=== PATIENT | female | born 1975 | race Caucasian/White ===

== ENCOUNTER 2023-04-17 18:19 | Observation (INO) | payer MEDICAID, OTHER ==
[2023-04-17] MEDS ORDERED: SODIUM CHLORIDE 0.9% 1,000 ML IV STA (18:28)
[2023-04-17] MEDS ORDERED: LORazepam 2 MG/ML INJ IV STA ×3 (18:28→19:18)
--- NOTE | 2023-04-17 18:29 | ED ---
Altered Mental Status HPI - General Stated Complaint: Tremors Time Seen by Provider: 04/17/23 18:22 Source: RN notes reviewed, old records reviewed Mode of arrival: EMS Limitations: altered mental status - History of Present Illness Initial Comments: This is a 48-year-old female who presents today for evaluation of medication withdrawal. Patient recently as a few days off of taking Seroquel. The patient states symptoms are progressively worse throughout the day. She is out of Seroquel home. Patient is unable to take medications secondary to not having primary care provider in town. Patient is having uncontrolled shaking and unresponsiveness MD Complaint: altered mental status, confusion, decreased responsiveness, other (Uncontrolled tremors) -: hour(s) Severity: severe Consistency of Symptoms: getting worse, constant Context: other (Patient recently did stop taking Seroquel) Associated Symptoms: denies other symptoms Treatments Prior to Arrival: IV fluid, oxygen - Related Data Allergies Allergy/AdvReac Type Severity Reaction Status Date / Time diphenhydramine Allergy Hallucinati Verified 04/17/23 18:45 [From Benadryl] ons metoclopramide [From Reglan] Allergy Hallucinati Verified 04/17/23 18:45 ons Review of Systems ROS Statement: Those systems with pertinent positive or pertinent negative responses have been documented in the HPI. ROS Other: All systems not noted in ROS Statement are negative. General Exam General appearance: alert, in no apparent distress Head exam: Present: atraumatic, normocephalic, normal inspection Eye exam: Present: normal appearance, PERRL, EOMI. Absent: scleral icterus, conjunctival injection, periorbital swelling ENT exam: Present: normal exam, mucous membranes moist Neck exam: Present: normal inspection. Absent: tenderness, meningismus, lymphadenopathy Respiratory exam: Present: normal lung sounds bilaterally. Absent: respiratory distress, wheezes, rales, rhonchi, stridor Cardiovascular Exam: Present: regular rate, normal rhythm, normal heart sounds. Absent: systolic murmur, diastolic murmur, rubs, gallop, clicks GI/Abdominal exam: Present: soft, normal bowel sounds. Absent: distended, t enderness, guarding, rebound, rigid Extremities exam: Present: normal inspection, full ROM, normal capillary refill. Absent: tenderness, pedal edema, joint swelling, calf tenderness Back exam: Present: normal inspection Neurological exam: Present: alert, oriented X3, CN II-XII intact Psychiatric exam: Present: normal affect, normal mood Skin exam: Present: warm, dry, intact, normal color. Absent: rash Course Vital Signs 04/17/23 04/17/23 04/17/23 18:28 18:37 18:53 Temperature 98 F Pulse Rate 83 91 84 Respiratory 20 20 16 Rate Blood Pressure 120/71 107/48 120/71 O2 Sat by Pulse 94 L 96 94 L Oximetry 04/17/23 20:08 Temperature Pulse Rate 72 Respiratory 20 Rate Blood Pressure 129/82 O2 Sat by Pulse 99 Oximetry - Reevaluation(s) Reevaluation #1: 04/17/23 20:06 Medical records reviewed Reevaluation #2: 04/17/23 20:06 Patient symptoms are improved Reevaluation #3: 04/17/23 20:06 Patient informed results and questions answered Reevaluation #4: 04/17/23 18:29 Was pt. sent in by a medical professional or institution? @ -no Did you speak to anyone other than the patient for history? @ -no Did you review nursing and triage notes? @ -agree Were old charts reviewed? @ -yes Differential Diagnosis? @ -prior EKG interpreted by me (3pts min.)? @ -yes X-rays interpreted by me (1pt min.)? @ -yes CT interpreted by me (1pt min.)? @ -no U/S interpreted by me (1pt. min.)? @ -no What testing was considered but not performed? (CT, X-rays, U/S, labs)? Why? @ -no What meds were considered but not given? Why? @ -no Did you discuss the management of the patient with other professionals? @ -no Did you reconcile home meds? @ -no Was smoking cessation discussed for >3mins.? @ -no Was critical care preformed (if so, how long)? @ -no Were there social determinants of health that impacted care today? How? (Homelessness, low income, unemployed, alcoholism, drug addiction, transportation, low edu. Level, literacy, decrease access to med. care, half-way, rehab)? @ -no Was there de-escalation of care discussed even if they declined? (Discuss DNR or withdrawal of care, Hospice)? @ -no What co-morbidities impacted this encounter? (DM, HTN, Smoking, COPD, CAD, Cancer, CVA, Hep., AIDS, mental health diagnosis, sleep apnea, morbid obesity)? @ -none Was patient admitted / discharged? @ - Undiagnosed new problem with uncertain prognosis? @ -no Drug Therapy requiring intensive monitoring for toxicity (Heparin, Nitro, Insulin, Cardizem)? @ -no Were any procedures done? @ -no Diagnosis/symptom? @ - Acute, or Chronic, or Acute on Chronic? @ -acute Uncomplicated (without systemic symptoms) or Complicated (systemic symptoms)? @ -complicated Side effects of treatment? @ -no Exacerbation, Progression, or Severe Exacerbation] @ -no Poses a threat to life or bodily function? @ -yes Reevaluation #5: 04/17/23 18:29 Differential Altered Mental Status: Hypoglycemia, DKA, hypercapnia, ETOH, overdose, CO poisoning, trauma, myxedema coma, HTN encephalopathy, infection, encephalitis, psychosis, intercranial hemorrhage, hepatic encephalopathy, meningitis, CVA, this is not meant to be an all-inclusive list - Consultations Consultation #1: spoke herminio BURGESS who is ok for hospital admission Medical Decision Making - Medical Decision Making 48 female to the emergency department. Patient resents today with what appears to be severe seroquel withdrawal issue, patient is off all medications with intractable tremor. Patient will be admitted for medication management and symptom control - Lab Data Result diagrams: 04/17/23 18:28 04/17/23 18:28 Lab Results 04/17/23 04/17/23 04/17/23 Range/Units 18:28 18:28 18:28 WBC 7.8 (3.8-10.6) k/uL RBC 4.88 (3.80-5.40) m/uL Hgb 14.6 (11.4-16.0) gm/dL Hct 43.4 (34.0-46.0) % MCV 88.9 (80.0-100.0) fL MCH 30.0 (25.0-35.0) pg MCHC 33.8 (31.0-37.0) g/dL RDW 13.3 (11.5-15.5) % Plt Count 249 (150-450) k/uL MPV 7.7 Neutrophils % 68 % Lymphocytes % 23 % Monocytes % 5 % Eosinophils % 3 % Basophils % 0 % Neutrophils # 5.3 (1.3-7.7) k/uL Lymphocytes # 1.8 (1.0-4.8) k/uL Monocytes # 0.4 (0-1.0) k/uL Eosinophils # 0.2 (0-0.7) k/uL Basophils # 0.0 (0-0.2) k/uL PT 10.1 (9.0-12.0) sec INR 1.0 (<1.2) APTT 24.0 (22.0-30.0) sec Sodium 142 (137-145) mmol/L Potassium 4.6 (3.5-5.1) mmol/L Chloride 110 H (98-107) mmol/L Carbon Dioxide 21 L (22-30) mmol/L Anion Gap 11 mmol/L BUN 12 (7-17) mg/dL Creatinine 0.93 (0.52-1.04) mg/dL Est GFR (CKD-EPI)AfAm 84 (>60 ml/min/1.73 sqM) Est GFR (CKD-EPI)NonAf 72 (>60 ml/min/1.73 sqM) Glucose 104 H (74-99) mg/dL Calcium 9.1 (8.4-10.2) mg/dL Phosphorus 3.9 (2.5-4.5) mg/dL Magnesium 1.9 (1.6-2.3) mg/dL Total Bilirubin 0.4 (0.2-1.3) mg/dL AST 22 (14-36) U/L ALT 19 (4-34) U/L Alkaline Phosphatase 65 (38-126) U/L Creatine Kinase 107 (30-135) U/L Troponin I (0.000-0.034) ng/mL Total Protein 7.4 (6.3-8.2) g/dL Albumin 4.2 (3.5-5.0) g/dL 04/17/23 Range/Units 18:28 WBC (3.8-10.6) k/uL RBC (3.80-5.40) m/uL Hgb (11.4-16.0) gm/dL Hct (34.0-46.0) % MCV (80.0-100.0) fL MCH (25.0-35.0) pg MCHC (31.0-37.0) g/dL RDW (11.5-15.5) % Plt Count (150-450) k/uL MPV Neutrophils % % Lymphocytes % % Monocytes % % Eosinophils % % Basophils % % Neutrophils # (1.3-7.7) k/uL Lymphocytes # (1.0-4.8) k/uL Monocytes # (0-1.0) k/uL Eosinophils # (0-0.7) k/uL Basophils # (0-0.2) k/uL PT (9.0-12.0) sec INR (<1.2) APTT (22.0-30.0) sec Sodium (137-145) mmol/L Potassium (3.5-5.1) mmol/L Chloride (98-107) mmol/L Carbon Dioxide (22-30) mmol/L Anion Gap mmol/L BUN (7-17) mg/dL Creatinine (0.52-1.04) mg/dL Est GFR (CKD-EPI)AfAm (>60 ml/min/1.73 sqM) Est GFR (CKD-EPI)NonAf (>60 ml/min/1.73 sqM) Glucose (74-99) mg/dL Calcium (8.4-10.2) mg/dL Phosphorus (2.5-4.5) mg/dL Magnesium (1.6-2.3) mg/dL Total Bilirubin (0.2-1.3) mg/dL AST (14-36) U/L ALT (4-34) U/L Alkaline Phosphatase (38-126) U/L Creatine Kinase (30-135) U/L Troponin I <0.012 (0.000-0.034) ng/mL Total Protein (6.3-8.2) g/dL Albumin (3.5-5.0) g/dL - EKG Data -: EKG Interpreted by Me (EKG is sinus 78 TN 159 QRS 79 QTC 389) Disposition Clinical Impression: Tremor, Altered mental status Narrative: Seroquel Withdrawal Disposition: ADMITTED IP TO THIS [facility] Condition: Fair Is patient prescribed a controlled substance at d/c from ED?: No Referrals: None,Stated [Primary Care Provider] - 1-2 days Time of Disposition: 20:40
[2023-04-17 19:15] LABS: Prothrombin Time 10.1 sec (9.0-12.0)
[2023-04-17 19:18] LABS: ALT 19 U/L (4-34); AST 22 U/L (14-36); African American GFR (CKD) 84 (>60 ml/min/1.73 sqM); Albumin 4.2 g/dL (3.5-5.0); Alkaline Phosphatase 65 U/L (38-126); Anion Gap 11 mmol/L; Blood Urea Nitrogen 12 mg/dL (7-17); Calcium 9.1 mg/dL (8.4-10.2); Carbon Dioxide 21 mmol/L (22-30); Chloride 110 mmol/L (98-107); Creatine Kinase 107 U/L (30-135); Glucose 104 mg/dL (74-99); Magnesium 1.9 mg/dL (1.6-2.3); Non-African American GFR(CKD) 72 (>60 ml/min/1.73 sqM); Phosphorus 3.9 mg/dL (2.5-4.5); Potassium 4.6 mmol/L (3.5-5.1); Sodium 142 mmol/L (137-145); Total Bilirubin 0.4 mg/dL (0.2-1.3); Total Protein 7.4 g/dL (6.3-8.2)
[2023-04-17] MEDS ORDERED: QUEtiapine 200 MG TAB PO STA (19:18)
[2023-04-17 19:21] LABS: Basophils % (A) 0 %; Eosinophils # (A) 0.2 k/uL (0-0.7); Eosinophils % (A) 3 %; HCT 43.4 % (34.0-46.0); HGB 14.6 gm/dL (11.4-16.0); Lymphocytes # (A) 1.8 k/uL (1.0-4.8); Lymphocytes % (A) 23 %; MCHC 33.8 g/dL (31.0-37.0); MCV 88.9 fL (80.0-100.0); Mean Platelet Volume 7.7; Monocytes # (A) 0.4 k/uL (0-1.0); Monocytes % (A) 5 %; Neutrophils # (A) 5.3 k/uL (1.3-7.7); Neutrophils % (A) 68 %; Platelet Count 249 k/uL (150-450); RBC 4.88 m/uL (3.80-5.40); RDW 13.3 % (11.5-15.5); WBC 7.8 k/uL (3.8-10.6)
[2023-04-17] MEDS: SODIUM CHLORIDE 0.9% 1,000 ML IV STA ×2 (19:34→21:11)
[2023-04-17] MEDS ORDERED: NALOXONE 0.4 MG/ML 1 ML VIAL IV PRN (20:34)
[2023-04-17] MEDS ORDERED: KETOROLAC 15 MG/ML 1 ML VIAL IVP PRN (20:34)
[2023-04-17] MEDS ORDERED: ACETAMINOPHEN TAB 325 MG TAB PO PRN (20:34)
[2023-04-17] MEDS ORDERED: QUEtiapine 25 MG TAB PO SCH (21:00)
[2023-04-17] MEDS ORDERED: QUEtiapine 100 MG TAB PO SCH (21:00)
[2023-04-17] MEDS: SODIUM CHLORIDE 0.9% 1,000 ML IV SCH (21:11)
[2023-04-17] MEDS: LORazepam 2 MG/ML INJ IV PRN (21:20)
[2023-04-17] MEDS: HYDROmorphone 1 MG/ML 1 ML SYRINGE IVP PRN (21:41)
[2023-04-17] MEDS: PRAMIPEXOLE 0.5 MG TAB PO SCH (23:29)
[2023-04-18 00:03] LABS: Appearance,Urine Cloudy (Clear); Bacteria,Urine Many /hpf; Bilirubin,Urine Negative (Negative); Blood,Urine Negative (Negative); Color,Urine Light Yellow; Glucose,Urine (UA) Negative (Negative); Hyaline Casts,Urine 3 /lpf (0-2); Ketones,Urine Negative (Negative); Leukocyte Esterase,Urine Moderate (Negative); Mucus,Urine Rare /hpf; Nitrite,Urine Positive (Negative); Protein,Urine Negative (Negative); RBC,Urine 1 /hpf (0-5); Squamous Epithelial Cell,Urine <1 /hpf (0-4); Urobilinogen,Urine <2.0 mg/dL (<2.0); WBC,Urine 20 /hpf (0-5)
[2023-04-18] MEDS: LORazepam 2 MG/ML INJ IV PRN ×3 (00:05→16:28)
[2023-04-18] MEDS: HYDROmorphone 1 MG/ML 1 ML SYRINGE IVP PRN ×2 (00:15→07:50)
[2023-04-18] MEDS: ATORVASTATIN 10 MG TAB PO SCH (08:08)
[2023-04-18] MEDS: PROPRANOLOL LA 60 MG CAP.SA.24H PO SCH (08:08)
[2023-04-18] MEDS: DULoxetine HCL 30 MG CAPSULE.DR PO SCH (08:08)
--- NOTE | 2023-04-18 11:27 | US ---
EXAMINATION TYPE: US kidneys/renal and bladder DATE OF EXAM: 04/18/2023 COMPARISON: NONE CLINICAL INDICATION: Female, 48 years old with history of Christian; CHRISTIAN EXAM MEASUREMENTS: Right Kidney: 10.6 x 5.0 x 4.5 cm Left Kidney: 10.3 x 5.4 x 5.0 cm Right Kidney: No hydronephrosis or masses seen. Slightly limited visibility of lower pole due to gas. Left Kidney: No hydronephrosis or masses seen Bladder: Not fully distended Bilateral Jets seen: No IMPRESSION: No significant abnormality seen.
[2023-04-18] MEDS: SODIUM CHLORIDE 0.9% 1,000 ML IV SCH (11:31)
[2023-04-18] MEDS ORDERED: busPIRone HCl 5 MG TAB PO PRN (14:08)
--- NOTE | 2023-04-18 14:16 | P.HPIM ---
History of Present Illness H&P Date: 04/18/23 History of present illness; patient is a 48-year-old lady with history of hyperl ipidemia, depression who presented to the ER because of uncontrollable shaking and tremors. Patient has been not taking her Seroquel for the last few days as she has been out of Seroquel and does not have any PCP in town. Denied any fever or chills. Denies any auditory or visual hallucinations. Denies any nausea or vomiting. Patient continues to complain of tremors. Denies any suicidal thoughts. Because of this uncontrollable shaking, patient came to the ER Initial lab work done in the ER showed WBC 7.8, hemoglobin 14.6, platelet count 249, sodium 140, potassium 4.6, BUN 12, creatinine 0.93, UA positive for nitrites, leukocyte Estrace positive, urine WBC 20, She was admitted to medicine service REVIEW OF SYSTEMS: CONSTITUTIONAL: No fever, shaking and tremulous HEENT: No recent visual problems or hearing problems. Denied any sore throat. CARDIOVASCULAR: No chest pain, orthopnea, PND, no palpitations, no syncope. PULMONARY: No shortness of breath, no cough, no hemoptysis. GASTROINTESTINAL: No diarrhea, no nausea, no vomiting, no abdominal pain. NEUROLOGICAL: No headaches, no weakness, no numbness. HEMATOLOGICAL: Denies any bleeding or petechiae. GENITOURINARY: Denies any burning micturition, frequency, or urgency. MUSCULOSKELETAL/RHEUMATOLOGICAL: Denies any joint pain, swelling, or any muscle pain. ENDOCRINE: Denies any polyuria or polydipsia. The rest of the 14-point review of systems is negative. PHYSICAL EXAMINATION: GENERAL: The patient is alert and oriented x3, not in any acute distress. Very tremulous HEENT: Pupils are round and equally reacting to light. EOMI. No scleral icterus. No conjunctival pallor. Normocephalic, atraumatic. No pharyngeal erythema. No thyromegaly. CARDIOVASCULAR: S1 and S2 present. No murmurs, rubs, or gallops. PULMONARY: Chest is clear to auscultation, no wheezing or crackles. ABDOMEN: Soft, nontender, nondistended, normoactive bowel sounds. No palpable organomegaly. MUSCULOSKELETAL: No joint swelling or deformity. EXTREMITIES: No cyanosis, clubbing, or pedal edema. NEUROLOGICAL: Gross neurological examination did not reveal any focal deficits. SKIN: No rashes. Assessment and plan Seroquel withdrawal UTI Hyperlipidemia Monitor vital signs Monitor CBC Monitor CMP Continue IV Rocephin Ordered ultrasound of kidneys Consults psychiatry resume home meds Labs and medication were reviewed.. Continue same treatment. Continue with symptomatic treatment. Resume home medication. Monitor labs and vitals. DVT and GI prophylaxis. Further recommendations as per clinical course of the patient Past Medical History Past Medical History: Fibromyalgia Additional Past Medical History / Comment(s): svt Past Surgical History: Orthopedic Surgery Past Psychological History: Anxiety, Depression Smoking Status: Current every day smoker Past Alcohol Use History: None Reported Past Drug Use History: None Reported Medications and Allergies Home Medications Medication Instructions Recorded Confirmed Type Atorvastatin [Lipitor] 10 mg PO DAILY 04/17/23 04/17/23 History DULoxetine HCL [Cymbalta] 90 mg PO DAILY 04/17/23 04/17/23 History Pramipexole Di-HCl [Mirapex] 2.25 mg PO HS 04/17/23 04/17/23 History Propranolol LA [Inderal LA] 120 mg PO DAILY 04/17/23 04/17/23 History QUEtiapine FUMARATE [SEROquel] 100 mg PO HS 04/18/23 04/18/23 History Allergies Allergy/AdvReac Type Severity Reaction Status Date / Time diphenhydramine Allergy Hallucinati Verified 04/17/23 18:45 [From Benadryl] ons metoclopramide [From Reglan] Allergy Hallucinati Verified 04/17/23 18:45 ons Physical Exam Vitals: Vital Signs Temp Pulse Pulse Resp BP BP Pulse Ox 04/18/23 07:02 97.9 F 72 18 104/72 99 04/17/23 22:17 98.2 F 94 17 118/67 96 04/17/23 20:08 72 20 129/82 99 04/17/23 18:53 84 16 120/71 94 L 04/17/23 18:37 98 F 91 20 107/48 96 04/17/23 18:28 83 20 120/71 94 L Intake and Output 04/17/23 04/18/23 04/18/23 22:59 06:59 14:59 Other: Voiding Method Bedpan Weight 77.111 kg Results CBC & Chem 7: 04/17/23 18:28 04/17/23 18:28 Labs: Abnormal Lab Results - Last 24 Hours (Table) 04/17/23 04/17/23 Range/Units 18:28 23:50 Chloride 110 H (98-107) mmol/L Carbon Dioxide 21 L (22-30) mmol/L Glucose 104 H (74-99) mg/dL Urine Appearance Cloudy H (Clear) Urine Nitrite Positive H (Negative) Ur Leukocyte Esterase Moderate H (Negative) Urine WBC 20 H (0-5) /hpf Urine Bacteria Many H (None) /hpf Hyaline Casts 3 H (0-2) /lpf Urine Mucus Rare H (None) /hpf
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
[2023-04-18] MEDS: PRAMIPEXOLE 0.5 MG TAB PO SCH (19:49)
[2023-04-18 19:56] VITALS: RESP 17
[2023-04-18] MEDS ORDERED: QUEtiapine 50 MG TAB PO SCH (21:00)
[2023-04-19] MEDS: SODIUM CHLORIDE 0.9% 1,000 ML IV SCH (00:44)
[2023-04-19] MEDS: LORazepam 2 MG/ML INJ IV PRN (04:58)
[2023-04-19 07:20] VITALS: BP 115/78; PULSE 65; TEMP 98
[2023-04-19] MEDS: ATORVASTATIN 10 MG TAB PO SCH (08:51)
[2023-04-19] MEDS: DULoxetine HCL 30 MG CAPSULE.DR PO SCH (08:51)
[2023-04-19] MEDS: PROPRANOLOL LA 60 MG CAP.SA.24H PO SCH (08:53)
--- NOTE | 2023-04-19 13:16 | P.DS ---
Providers Date of admission: 04/17/23 20:38 Expected date of discharge: 04/19/23 Attending physician: Altaf Bruner Consults: 04/17/23 20:57 Consult Physician Routine Consulting Provider: Ed Looney Consult Reason/Comments: medReaction Do you want consulting provider notified?: Yes Primary care physician: Stated None Hospital Course: Discharge diagnoses; UTI Hyperlipidemia Depressive disorder NOS hx of PTSD SSRI medication withdrawal Hospital course; patient is a 48-year-old lady with history of hyperlipidemia, depression who presented to the ER because of uncontrollable shaking and tremors. Patient has been not taking her Seroquel for the last few days as she has been out of Seroquel and does not have any PCP in town. Denied any fever or chills. Denies any auditory or visual hallucinations. Denies any nausea or vomiting. Patient continues to complain of tremors. Denies any suicidal thoughts. Because of this uncontrollable shaking, patient came to the ER Initial lab work done in the ER showed WBC 7.8, hemoglobin 14.6, platelet count 249, sodium 140, potassium 4.6, BUN 12, creatinine 0.93, UA positive for nitrites, leukocyte Estrace positive, urine WBC 20, She was admitted to medicine service 04/19 Psych evaluated the patient, recommended resumed cymbalta home dose of 90 mg daily for mood/anxiety, increased seroquel 150 mg qhs for mood stabiliation/anxiety/sleep, buspar 15 mg tid prn for anxiety. Being discharged on 1 more day of Ceftin to complete a 3 day course for UTI PHYSICAL EXAMINATION: GENERAL: The patient is alert and oriented x3, not in any acute distress. Well developed, well nourished. HEENT: Pupils are round and equally reacting to light. EOMI. No scleral icterus. No conjunctival pallor. Normocephalic, atraumatic. No pharyngeal erythema. No thyromegaly. CARDIOVASCULAR: S1 and S2 present. No murmurs, rubs, or gallops. PULMONARY: Chest is clear to auscultation, no wheezing or crackles. ABDOMEN: Soft, nontender, nondistended, normoactive bowel sounds. No palpable organomegaly. MUSCULOSKELETAL: No joint swelling or deformity. EXTREMITIES: No cyanosis, clubbing, or pedal edema. NEUROLOGICAL: Gross neurological examination did not reveal any focal deficits. SKIN: No rashes. Dictation was produced using [employer] dictation software. please excuse any grammatical, word or spelling errors. Patient Condition at Discharge: Fair Plan - Discharge Summary Discharge Rx Participant: No New Discharge Prescriptions: New busPIRone HCl [Buspar] 15 mg PO TID PRN #30 tab PRN Reason: Anxiety cefUROXime axetiL [Ceftin] 500 mg PO BID 1 Days #2 tab NS DULoxetine HCL [Cymbalta] 90 mg PO DAILY #60 cap QUEtiapine [SEROquel] 150 mg PO HS #30 tab Continue Atorvastatin [Lipitor] 10 mg PO DAILY Propranolol LA [Inderal LA] 120 mg PO DAILY Pramipexole Di-HCl [Mirapex] 2.25 mg PO HS #30 tab Discontinued DULoxetine HCL [Cymbalta] 90 mg PO DAILY QUEtiapine FUMARATE [SEROquel] 100 mg PO HS Discharge Medication List Atorvastatin [Lipitor] 10 mg PO DAILY 04/17/23 [History] Propranolol LA [Inderal LA] 120 mg PO DAILY 04/17/23 [History] DULoxetine HCL [Cymbalta] 90 mg PO DAILY #60 cap 04/19/23 [Rx] Pramipexole Di-HCl [Mirapex] 2.25 mg PO HS #30 tab 04/19/23 [Rx] QUEtiapine [SEROquel] 150 mg PO HS #30 tab 04/19/23 [Rx] busPIRone HCl [Buspar] 15 mg PO TID PRN #30 tab 04/19/23 [Rx] cefUROXime axetiL [Ceftin] 500 mg PO BID 1 Days #2 tab NS 04/19/23 [Rx] Follow up Appointment(s)/Referral(s): None,Stated [Primary Care Provider] - 1-2 days Discharge/Stand Alone Forms: Area PCPs Discharge Disposition: HOME SELF-CARE
== END 2023-04-19 15:16 | disposition home or self-care (01) ==
LOC: EC 18:19 → 4SSUR 20:38
PROVIDERS: ADMIT Hospitalist; ATTEND Hospitalist
DX: N39.0 Urinary tract infection, site not specified (principal); E78.5 Hyperlipidemia, unspecified; F32.A Depression, unspecified; F15.23 Other stimulant dependence with withdrawal; F43.10 Post-traumatic stress disorder, unspecified; M79.7 Fibromyalgia; F41.9 Anxiety disorder, unspecified; F17.200 Nicotine dependence, unspecified, uncomplicated; Z79.899 Other long term (current) drug therapy; Z88.8 Allergy status to other drugs, medicaments and biological substances
CPT/HCPCS: 96361 ×3; 96365; 96375 ×2; 96376 ×3; 99285; 36415; 94760; 93005; 80053; 82550; 83735; 84100; 84484; 85025; 85610; 85730; 81001; 76770; G0378 ×3; J2060 ×3; J0696 ×2; J1170 ×2; J1885

== ENCOUNTER 2023-05-19 01:30 | Inpatient (IN) | payer MEDICAID, OTHER ==
[2023-05-19] MEDS ORDERED: SODIUM CHLORIDE 0.9% 500 ML 500 ML IV ONE (02:05)
[2023-05-19] MEDS ORDERED: LORazepam 2 MG/ML INJ IV STA ×2 (02:05→19:40)
--- NOTE | 2023-05-19 02:10 | ED ---
General Adult HPI - General Chief complaint: Anxiety Stated complaint: Medication Reaction Time Seen by Provider: 05/19/23 01:53 Source: patient, RN notes reviewed, old records reviewed Limitations: no limitations - History of Present Illness Initial comments: 48 -year-old female presents to the emergency room with complaints of uncontrollable tremors. States she was able to drive herself to the hospital. States that this occurred approximately 3-4 weeks ago and was admitted to the hospital from Tuesday to Tuesday. At that time was having uncontrolled shaking and unresponsiveness. They suspected withdrawal from Seroquel and was admitted to the hospital. She was admitted she states from Tuesday to Tuesday and discharged home but does not remember anything about her hospital stay. She states she has been taking her Seroquel and her symptom started again on Tuesday and seem to be getting worse. She states she does not have a primary care doctor. -: days(s) (3) Location: left, right (Generalized uncontrollable body tremors), lower extremity Severity scale (1-10): 0 Consistency: constant Improves with: none Worsens with: none Treatments Prior to Arrival: other (seroquel) - Related Data Home Medications Medication Instructions Recorded Confirmed Atorvastatin [Lipitor] 10 mg PO DAILY 04/17/23 04/17/23 Propranolol LA [Inderal LA] 120 mg PO DAILY 04/17/23 04/17/23 Previous Rx's Medication Instructions Recorded DULoxetine HCL [Cymbalta] 90 mg PO DAILY #60 cap 04/19/23 Pramipexole Di-HCl [Mirapex] 2.25 mg PO HS #30 tab 04/19/23 QUEtiapine [SEROquel] 150 mg PO HS #30 tab 04/19/23 busPIRone HCl [Buspar] 15 mg PO TID PRN #30 tab 04/19/23 cefUROXime axetiL [Ceftin] 500 mg PO BID 1 Days #2 tab NS 04/19/23 Allergies Allergy/AdvReac Type Severity Reaction Status Date / Time diphenhydramine Allergy Hallucinati Verified 04/17/23 18:45 [From Benadryl] ons metoclopramide [From Reglan] Allergy Hallucinati Verified 04/17/23 18:45 ons Review of Systems ROS Statement: Those systems with pertinent positive or pertinent negative responses have been documented in the HPI. ROS Other: All systems not noted in ROS Statement are negative. Past Medical History Past Medical History: Fibromyalgia Additional Past Medical History / Comment(s): svt History of Any Multi-Drug Resistant Organisms: None Reported Past Surgical History: Orthopedic Surgery Past Anesthesia/Blood Transfusion Reactions: No Reported Reaction Past Psychological History: Anxiety, Depression Smoking Status: Current every day smoker Past Alcohol Use History: None Reported Past Drug Use History: None Reported General Exam Limitations: no limitations General appearance: alert, other (whole body tremors) Head exam: Present: atraumatic, normocephalic Eye exam: Present: other (pinpoint pupils bilaterally). Absent: scleral icterus, conjunctival injection ENT exam: Present: mucous membranes moist Neck exam: Absent: tenderness, meningismus Respiratory exam: Present: normal lung sounds bilaterally. Absent: respiratory distress, accessory muscle use Cardiovascular Exam: Present: regular rate Extremities exam: Present: full ROM, normal capillary refill, other (Persistent tremors bilateral lower extremities). Absent: pedal edema Back exam: Absent: tenderness, paraspinal tenderness, vertebral tenderness, rash noted Neurological exam: Present: alert, oriented X3, other (tremors) Psychiatric exam: Present: anxious Skin exam: Present: warm, dry, normal color. Absent: cyanosis, diaphoretic, petechiae, pallor Course Vital Signs 05/19/23 05/19/23 01:31 03:34 Temperature 98.1 F Pulse Rate 69 92 Respiratory 18 19 Rate Blood Pressure 134/81 O2 Sat by Pulse 98 Oximetry Medical Decision Making - Medical Decision Making Was pt. sent in by a medical professional or institution (, PA, AIR ANALYSIS ENGINEERING TECHNICIAN, urgent c are, hospital, or assisted...) When possible be specific @ -No Did you speak to anyone other than the patient for history (EMS, parent, family, police, friend...)? What history was obtained from this source @ -No Did you review nursing and triage notes (agree or disagree)? Why? @ -I reviewed and agree with nursing and triage notes Were old charts reviewed (outside hosp., previous admission, EMS record, old EKG, old radiological studies, urgent care reports/EKG's, assisted records)? Report findings @ -Previous ER visit and admission notes and discharge summary Differential Diagnosis (chest pain, altered mental status, abdominal pain women, abdominal pain men, vaginal bleeding, weakness, fever, dyspnea, syncope, headache, dizziness, GI bleed, back pain, seizure, CVA, palpatations, mental health, musculoskeletal)? @ -Neuroleptic malignant syndrome, serotonin syndrome, anxiety, drug reaction, this is not all inclusive list EKG interpreted by me (3pts min.). @ -n/a X-rays interpreted by me (1pt min.). @ -None done CT interpreted by me (1pt min.). @ -None done U/S interpreted by me (1pt. min.). @ -None done What testing was considered but not performed or refused? (CT, X-rays, U/S, labs)? Why? @ -None What meds were considered but not given or refused? Why? @ -None Did you discuss the management of the patient with other professionals (professionals i.e. , PA, AIR ANALYSIS ENGINEERING TECHNICIAN, lab, RT, psych nurse, hospice social worker, editor school photograph, teacher, chief operations officer, pillowcase sewer)? Give summary @ -No Was smoking cessation discussed for >3mins.? @ -No Was critical care preformed (if so, how long)? @ -No Were there social determinants of health that impacted care today? How? (Homelessness, low income, unemployed, alcoholism, drug addiction, transportation, low edu. Level, literacy, decrease access to med. care, [facility], rehab)? @ -No Was there de-escalation of care discussed even if they declined (Discuss DNR or withdrawal of care, Hospice)? DNR status @ -No What co-morbidities impacted this encounter? (DM, HTN, Smoking, COPD, CAD, Cancer, CVA, ARF, Chemo, Hep., AIDS, mental health diagnosis, sleep apnea, morbid obesity)? @ -Fibromyalgia, anxiety, depression Was patient admitted / discharged? Hospital course, mention meds given and route, prescriptions, significant lab abnormalities, going to OR and other pertinent info. @ -Admitted 48 -year-old female presents to the emergency room with complaints of uncontrollable tremors. States she was able to drive herself to the hospital. States that this occurred approximately 3-4 weeks ago and was admitted to the hospital from Tuesday to Tuesday. At that time was having uncontrolled shaking and unresponsiveness. They suspected withdrawal from Seroquel and was admitted to the hospital. She was admitted she states from Tuesday to Tuesday and discharged home but does not remember anything about her hospital stay. She states she has been taking her Seroquel and her symptom started again on Tuesday and seem to be getting worse. She states she does not have a primary care doctor. Previous records were reviewed. Discharge summary just discharge diagnosis of UTI, hyperlipidemia, depression, PTSD, SSRI medication withdrawal. She was discharged on BuSpar for anxiety, Cymbalta daily and Seroquel at bedtime. Psychiatric consultation with Dr. Griffiths performed patient did not meet criteria for inpatient psychiatric hospitalization. Was given outpatient psychiatric follow-up.Patient afebrile, vital signs are stable. She is alert and oriented 4 Patient was given a milligram of Ativan along with IV fluids. Labs are pending. Case discussed with Dr. Hernandez patient will be admitted with neurology consult for uncontrollable tremors. Undiagnosed new problem with uncertain prognosis? @ -No Drug Therapy requiring intensive monitoring for toxicity (Heparin, Nitro, Insulin, Cardizem)? @ -No Were any procedures done? @ -No Diagnosis/symptom? @ -Uncontrollable tremors Acute, or Chronic, or Acute on Chronic? @ -Acute Uncomplicated (without systemic symptoms) or Complicated (systemic symptoms)? @ -Complicated Side effects of treatment? @ -No Exacerbation, Progression, or Severe Exacerbation? @ -No Poses a threat to life or bodily function? How? (Chest pain, [place], [place], pneumonia, PE, COPD, DKA, ARF, appy, cholecystitis, CVA, Diverticulitis, Homicidal, Suicidal, threat to staff... and all critical care pts) @ -No - Lab Data Result diagrams: 05/19/23 02:45 Lab Results 05/19/23 Range/Units 02:45 WBC 12.6 H (3.8-10.6) k/uL RBC 4.78 (3.80-5.40) m/uL Hgb 14.5 (11.4-16.0) gm/dL Hct 42.2 (34.0-46.0) % MCV 88.3 (80.0-100.0) fL MCH 30.3 (25.0-35.0) pg MCHC 34.3 (31.0-37.0) g/dL RDW 13.4 (11.5-15.5) % Plt Count 259 (150-450) k/uL MPV 7.5 Neutrophils % 67 % Lymphocytes % 23 % Monocytes % 6 % Eosinophils % 2 % Basophils % 0 % Neutrophils # 8.4 H (1.3-7.7) k/uL Lymphocytes # 2.9 (1.0-4.8) k/uL Monocytes # 0.8 (0-1.0) k/uL Eosinophils # 0.2 (0-0.7) k/uL Basophils # 0.1 (0-0.2) k/uL Disposition Clinical Impression: Persistent tremor Disposition: ADMITTED IP TO THIS HOSP Referrals: None,Stated [Primary Care Provider] - 1-2 days Decision Date: 05/19/23 Decision Time: 03:26
[2023-05-19 02:55] LABS: Basophils # (A) 0.1 k/uL (0-0.2); Basophils % (A) 0 %; Eosinophils # (A) 0.2 k/uL (0-0.7); Eosinophils % (A) 2 %; HCT 42.2 % (34.0-46.0); HGB 14.5 gm/dL (11.4-16.0); Lymphocytes # (A) 2.9 k/uL (1.0-4.8); Lymphocytes % (A) 23 %; MCH 30.3 pg (25.0-35.0); MCHC 34.3 g/dL (31.0-37.0); MCV 88.3 fL (80.0-100.0); Mean Platelet Volume 7.5; Monocytes # (A) 0.8 k/uL (0-1.0); Monocytes % (A) 6 %; Neutrophils # (A) 8.4 k/uL (1.3-7.7); Neutrophils % (A) 67 %; Platelet Count 259 k/uL (150-450); RBC 4.78 m/uL (3.80-5.40); RDW 13.4 % (11.5-15.5); WBC 12.6 k/uL (3.8-10.6)
[2023-05-19 03:08] LABS: ALT 46 U/L (4-34); AST 54 U/L (14-36); African American GFR (CKD) >90 (>60 ml/min/1.73 sqM); Albumin 4.6 g/dL (3.5-5.0); Alkaline Phosphatase 67 U/L (38-126); Anion Gap 15 mmol/L; Blood Urea Nitrogen 14 mg/dL (7-17); Calcium 9.7 mg/dL (8.4-10.2); Carbon Dioxide 21 mmol/L (22-30); Chloride 103 mmol/L (98-107); Creatine Kinase 132 U/L (30-135); Glucose 104 mg/dL (74-99); Non-African American GFR(CKD) >90 (>60 ml/min/1.73 sqM); Sodium 139 mmol/L (137-145); Total Bilirubin 0.6 mg/dL (0.2-1.3); Total Protein 8.2 g/dL (6.3-8.2)
[2023-05-19] MEDS ORDERED: ACETAMINOPHEN TAB 325 MG TAB PO PRN (03:23)
[2023-05-19] MEDS ORDERED: NALOXONE 0.4 MG/ML 1 ML VIAL IV PRN (03:23)
[2023-05-19] MEDS ORDERED: IBUPROFEN 400 MG TAB PO PRN (03:23)
[2023-05-19 04:23] LABS: Potassium 4.5 mmol/L (3.5-5.1)
[2023-05-19] MEDS ORDERED: busPIRone HCl 5 MG TAB PO PRN (06:27)
--- NOTE | 2023-05-19 06:45 | P.HPIM ---
History of Present Illness This is a pleasant 48 years old female with past medical history of hypertension, hyperlipidemia, fibromyalgia, anxiety and depression. Presents because of worsening restless leg and other symptoms as below. 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 She is originally from [place], she is but she still talks to her ex- who is in [place] currently. She is to go to neuropsychiatrist at [facility] for insomnia and severe restless leg syndrome as she states when they diagnosed her. She was placed on Seroquel, Dulcolax and Mirapex. About 4 weeks ago she thought that Seroquel making her restless leg syndrome worse so she stopped taking cold turkey and ended up being here in the hospital this facility. On reviewing the records , Patient was admitted 04/17-04/19 for medication withdrawal as she ran out of it, patient does not have PCP here in [place]. Psychiatric service evaluated her and diagnosed with depressive disorder who may history of PTSD and S SR I medication withdrawal. There is into her Cymbalta 90 mg daily, increase Seroquel to 150 leg at bedtime and BuSpar 50 mg 3 times a day when necessary for anxiety with recommendatio, she's been anxious n for outpatient follow-up. However patient still reports an restless leg and other feelings. Patient states she continue to take her medication currently. But she came to the hospital because since last Tuesday she could not sleep, she's been anxious, she reports some numbness and tingling in her fingers and feet, she thinks she lost her vision a certain point and she is not sure if she lost consciousness and bit her tongue but currently she denies any of these symptoms like loss of vision or confusion. She also reports some diarrhea and nausea but no abdominal pain, she has 6 bowel movements yesterday. No urinary complaints. She feels some tightness in the chest, chest pain and palpitation but these are multiple main symptoms and she does not complain from them currently. No headache dizziness weakness, no currently double vision or blurred vision. She feels there are skips in her brain (she states she cannot explain exactly how she feels) She denies smoking alcohol or illicit drugs Patient says she takes propranolol 90 mg at bedtime Patient states that she was on Ceftin for UTI symptoms but, patient denies any signs and symptoms of similar therefore we will hold on any antibiotics for now Patient is hemodynamically stable, afebrile Has mild leukocytosis of 12.6, risks of CBC, BMP is unremarkable Bilirubin is normal but liver enzymes slightly up with AST 54 and ALT 46. Patient received Ativan in the emergency room and she felt significantly better, she states that her tremor is significantly improved and also she is sleeping here in the emergency room 12, but she is easily to awake Review of Systems Review of systems CONSTITUTIONAL: No fever, no malaise, no fatigue. HEENT: No recent visual problems or hearing problems. Denied any sore throat. CARDIOVASCULAR: No orthopnea, PND, no palpitations, no syncope. PULMONARY: No shortness of breath, no cough, no hemoptysis. GASTROINTESTINAL: No diarrhea, no nausea, no vomiting, no abdominal pain. Normoactive bowel sounds. NEUROLOGICAL: No headaches, no weakness, no numbness. HEMATOLOGICAL: Denies any bleeding or petechiae. GENITOURINARY: Denies any burning micturition, frequency, or urgency. MUSCULOSKELETAL/RHEUMATOLOGICAL: Denies any joint pain, swelling, or any muscle pain. ENDOCRINE: Denies any polyuria or polydipsia. Past Medical History Past Medical History: Fibromyalgia Additional Past Medical History / Comment(s): svt History of Any Multi-Drug Resistant Organisms: None Reported Past Surgical History: Orthopedic Surgery Past Anesthesia/Blood Transfusion Reactions: No Reported Reaction Past Psychological History: Anxiety, Depression Smoking Status: Current every day smoker Past Alcohol Use History: None Reported Past Drug Use History: None Reported Medications and Allergies Home Medications Medication Instructions Recorded Confirmed Type Atorvastatin [Lipitor] 10 mg PO DAILY 04/17/23 04/17/23 History Propranolol LA [Inderal LA] 120 mg PO DAILY 04/17/23 04/17/23 History DULoxetine HCL [Cymbalta] 90 mg PO DAILY #60 cap 04/19/23 Rx Pramipexole Di-HCl [Mirapex] 2.25 mg PO HS #30 tab 04/19/23 Rx QUEtiapine [SEROquel] 150 mg PO HS #30 tab 04/19/23 Rx busPIRone HCl [Buspar] 15 mg PO TID PRN #30 tab 04/19/23 Rx cefUROXime axetiL [Ceftin] 500 mg PO BID 1 Days #2 tab NS 04/19/23 Rx Allergies Allergy/AdvReac Type Severity Reaction Status Date / Time diphenhydramine Allergy Hallucinati Verified 04/17/23 18:45 [From Benadryl] ons metoclopramide [From Reglan] Allergy Hallucinati Verified 04/17/23 18:45 ons Physical Exam Vitals: Vital Signs Temp Pulse Resp BP Pulse Ox 05/19/23 05:33 83 19 05/19/23 04:10 96 19 05/19/23 03:34 92 19 05/19/23 01:31 98.1 F 69 18 134/81 98 Intake and Output 05/18/23 05/18/23 05/19/23 14:59 22:59 06:59 Other: Weight 77.111 kg GENERAL: The patient is alert and oriented x3, not in any acute distress. Well developed, well nourished. HEENT: Pupils are round and equally reacting to light. EOMI. No scleral icterus. No conjunctival pallor. Normocephalic, atraumatic. No pharyngeal erythema. No thyromegaly. CARDIOVASCULAR: S1 and S2 present. No murmurs, rubs, or gallops. PULMONARY: Chest is clear to auscultation, no wheezing , no crackles. ABDOMEN: Soft, nontender, nondistended, normoactive bowel sounds. No palpable organomegaly. MUSCULOSKELETAL: No joint swelling or deformity. -EXTREMITIES: No cyanosis, clubbing, or pedal edema. And a tremor NEUROLOGICAL: Gross neurological examination did not reveal any focal deficits. SKIN: No rashes. no petechiae. Results CBC & Chem 7: 05/19/23 02:45 05/19/23 02:45 Labs: Abnormal Lab Results - Last 24 Hours (Table) 05/19/23 05/19/23 Range/Units 02:45 02:45 WBC 12.6 H (3.8-10.6) k/uL Neutrophils # 8.4 H (1.3-7.7) k/uL Carbon Dioxide 21 L (22-30) mmol/L Glucose 104 H (74-99) mg/dL AST 54 H (14-36) U/L ALT 46 H (4-34) U/L Assessment and Plan Assessment: Worsening psychiatric symptoms suspicious for depression and anxiety,with restless leg, With suspected some elements of PTSD as well. Restless leg and possible tremor Insomnia Hypertension Hyperlipidemia Fibromyalgia anxiety and depression Plan: Follow-up with the neurology service Resume her psych medications including BuSpar, Seroquel and Cymbalta Check TSH follow-up urine drug screen Labs and medication were reviewed.. Continue same treatment. Continue with symptomatic treatment. Resume home medication. Monitor labs and vitals. DVT and GI prophylaxis. Further recommendations as per clinical course of the patient DVT prophylaxis: Subcutaneous heparin GI Prophylaxis: Pepcid PT/OT: Pending Prognosis is guarded
[2023-05-19] MEDS ORDERED: FAMOTIDINE 20 MG/2 ML VIAL IV SCH (09:00)
[2023-05-19] MEDS: HEPARIN SODIUM,PORCINE 5,000 UNIT/ML 1 ML VIAL SQ SCH ×2 (10:26→20:05)
[2023-05-19] MEDS: DULoxetine HCL 30 MG CAPSULE.DR PO SCH (10:26)
[2023-05-19] MEDS: FAMOTIDINE 20 MG TAB PO SCH ×2 (10:26→20:02)
[2023-05-19] MEDS: PROPRANOLOL LA 60 MG CAP.SA.24H PO SCH (10:27)
[2023-05-19] MEDS: LORazepam 2 MG/ML INJ IV PRN ×2 (10:44→23:37)
--- NOTE | 2023-05-19 11:04 | P.CNNES ---
History of Present Illness Consult date: 05/19/23 Requesting physician: Gerhard Miller Reason for Consult: uncontrollable tremors History of Present Illness: Is a 48-year-old woman with history of restless leg syndrome, PTSD, insomnia, depression who presents because of uncontrollable tremor of all extremities. Patient stated that she has been on Seroquel for the last 6 month and ever since he's been on Seroquel and she's been having uncontrollable movement of all ex tremities and she stopped Seroquel cold turkey about a month because of those movement. As a result of her stopping the medication she stated that she had episode of unresponsiveness, urinary incontinence and then was restarted on Seroquel 150mg daily. According to her she was started on Seroquel by [facility]. She is also on clonazepam 3 mg at bedtime and she's been on for years, she is also on the BuSpar, pramipexole 2.5 mg for her restless leg syndrome, she is on Cymbalta 90 mg daily and she's been off of that medication to last 1 month, she is on the propanolol 120 mg daily. She denies any history of seizures. She denies any family history of seizures. Denies any history of strokes. She stated that that she recently moved from [place] to [place] and she denies followed up with a psychiatrist. She stated she ran out of medication recently such as Cymbalta for last 1 month.. She smokes 5 cigars a day and that she socially drinks alcohol. Denies any illicit drug use. Some other workup during this hospitalization consisted of: This is a for bowel and initial blood pressure is 134/81. White blood cell 12.6 and the neutrophils is 8.4 otherwise CBC with differential is unremarkable next Serum glucose is 104, AST 64 and ALTs 46. Otherwise rest of Kristy's panels unrema rkable. TSH is 3.940. Review of Systems Review of system: The 12 point system was reviewed and apparent positive and negative per HPI. Past Medical History Past Medical History: Fibromyalgia Additional Past Medical History / Comment(s): svt History of Any Multi-Drug Resistant Organisms: None Reported Past Surgical History: Orthopedic Surgery Past Anesthesia/Blood Transfusion Reactions: No Reported Reaction Past Psychological History: Anxiety, Depression Smoking Status: Current every day smoker Past Alcohol Use History: None Reported Past Drug Use History: None Reported Medications and Allergies Home Medications Medication Instructions Recorded Confirmed Type Atorvastatin [Lipitor] 10 mg PO DAILY 04/17/23 05/19/23 History Propranolol LA [Inderal LA] 120 mg PO DAILY 04/17/23 05/19/23 History DULoxetine HCL [Cymbalta] 90 mg PO DAILY #60 cap 04/19/23 05/19/23 Rx Pramipexole Di-HCl [Mirapex] 2.25 mg PO HS #30 tab 04/19/23 05/19/23 Rx QUEtiapine [SEROquel] 150 mg PO HS #30 tab 04/19/23 05/19/23 Rx busPIRone HCl [Buspar] 15 mg PO TID PRN #30 tab 04/19/23 05/19/23 Rx Allergies Allergy/AdvReac Type Severity Reaction Status Date / Time Penicillins Allergy Rash/Hives Verified 05/19/23 06:51 on abdomen diphenhydramine AdvReac Hallucinati Verified 05/19/23 06:51 [From Benadryl] ons metoclopramide [From Reglan] AdvReac Hallucinati Verified 05/19/23 06:51 ons Physical Examination - Vital Signs Vital Signs: Vital Signs Temp Pulse Pulse Resp BP BP Pulse Ox 05/19/23 07:00 98.1 F 66 16 107/70 96 05/19/23 05:33 83 19 05/19/23 04:10 96 19 05/19/23 03:34 92 19 05/19/23 01:31 98.1 F 69 18 134/81 98 Intake and Output 05/18/23 05/19/23 05/19/23 22:59 06:59 14:59 Intake Total 188 Balance 188 Intake: Oral 188 Other: Weight 77.111 kg GENERAL: The patient is lying in bed and is not in acute distress. NEUROLOGICAL: Higher mental function: The patient is awake, alert, oriented to self, place and time. Patient is following commands. No aphasia and no neglect. Cranial nerves: The pupils are round, equal and reactive to light and accommodation. Visual zapata are full to confrontation throughout. Extraocular movement is intact no nystagmus is noted. Facial sensation is normal to touch throughout. The facial strength is normal throughout. Hearing is normal bilaterally to hand rub. Tongue is midline and moved [id number] without any difficulty. No dysarthria is noted. Shoulder shrug is normal bilaterally. Motor: The strength is 5 over 5 throughout. Normal tone and bulk. Initially patient was having some nonrhythmic movements of the lower extremity and were distracted with questioning and the episode was short lasting and during these episodes the patient was responsive following commands and again as stated that patient the episode resolved with distraction.. Cerebellum: Normal finger to nose heel to wood bilaterally. Sensation: Sensation is normal to touch throughout. Reflexes (right/left): 2+ throughout. Plantars are downgoing bilaterally. Results - Laboratory Findings CBC and BMP: 05/19/23 02:45 05/19/23 02:45 Abnormal Lab Findings: Abnormal Labs 05/19/23 05/19/23 02:45 02:45 WBC 12.6 H Neutrophils # 8.4 H Carbon Dioxide 21 L Glucose 104 H AST 54 H ALT 46 H Assessment and Plan Assessment: This is a 48-year-old woman with history of depression, insomnia, restless leg syndrome, fibromyalgia, PTSD has been on Seroquel 150 mg daily for the last 6 months and ever since she's been on Seroquel she felt that she's been having uncontrollable movement. She had an episode when that she stop Seroquel about a month ago she became unresponsive and had urinary incontinence so she was restarted on it a month ago. She ran out of Klonopin about a month ago. She is also on Klonopin, Cymbalta. Dyskinesia (reported) likely due to medication use and medication withdrawal (antipsychotic use and withdrawal of Klonipin). I highly doubt these are epileptic in seizure but cannot be ruled out History of PTSD History of fibromyalgia History of insomnia Tobacco use Plan: I ordered a CT of the brain as well as a routine EEG to rule out any central cause. If EEG is normal and patient continues to have these episodes even with medication modification recommend a prolonged EEG as an outpatient and possible MRI of the brain as an outpatient. TSH is normal. Psychiatry team is consulted Patient was counseled on tobacco cessation We'll defer the rest of the medical management to primary team The plan discussed with the patient and her nurse. Thank you consultation. Time with Patient: Greater than 30
--- NOTE | 2023-05-19 11:58 | CT ---
EXAMINATION TYPE: CT brain wo con CT DLP: 1131.80 mGycm, Automated exposure control for dose reduction was used. DATE OF EXAM: 05/19/2023 11:43 AM COMPARISON: None. CLINICAL INDICATION:Female, 48 years old with history of tremors, Uncontrollable tremors TECHNIQUE: Brain: Axial CT images of the brain were obtained with coronal and sagittal reformats created and rev iewed. Contrast used: None. Oral contrast used: None. FINDINGS: Brain: Extra-axial spaces: No abnormal extra-axial fluid collections. Ventricular system: Within normal limits Cerebral parenchyma: No acute intraparenchymal hemorrhage or mass effect. The greenfield-white junction is well differentiated. Cerebellum: Unremarkable. Mass effect: No evidence of midline shift. Intracranial vasculature: unremarkable Soft tissues: Normal. Calvarium/osseous structures: No depressed skull fracture. Paranasal sinuses and mastoid air cells: Mild scattered paranasal sinus disease. Visualized orbits: Orbital contents are intact. IMPRESSION: No acute intracranial process.
--- NOTE | 2023-05-19 13:29 | P.CN ---
Psychiatric Consult - . Consult date: 05/19/23 Consult:: 05/19/23 12:52 Identifying information: Patient is a 48 yo female, currently lives alone in an apartment, seperated, has 7 kids, currently works as a nurse digital content marketing manager. Reason for referral: depression, known to psych HPI: Patient was seen today by freelance writer at the bedside for psych eval as patient was previously evaluated by psychiatry and freelance writer on her previous hospital stay. Patient presented with a chief complain on 05/19 to the ER with uncontrolled tremors. Patient apparently drove her salt to the hospital. She was recently admitted. She had a elevated white count at 12.6, ANC was a 0.4. AST and ALT were mildly elevated. Patient had a computed tomography scan of her brain which was negative for any acute changes. EEG is still pending. Patient is currently being followed by neurology. Patient was seen at the bedside and spoke mainly about her insomnia issues and also her problems with Seroquel. She claims that her cervical was "triggering a restless leg symptoms". She states that she is then up for the past 3 or 4 nights due to poor sleep from the restless leg symptoms. She claims that she used to sleep very well on Klonopin was taken about 3 mg a night however since moving to [place] was not able to be restarted back on it. She claims that her insomnia is her main issue at this time, denies any depression and denies any current anxiety however does state that she has a history of PTSD. she was also having poor sleep, fair appetite. She is denying any SI or Hi and denying any Ah or Vh. denies any rec drug use except for cigarettes. Past medical hx: see ER note Past psych hx: Patient claims that she has a hx of PTSD and depression, states that she was only once ever admitted to a psych unit in [place] this past january. denies any psych outpatient f/u and states that she is currently taking cymbalta and seroquel. denies any hx of suicide attempts. Family hx: denies Social hx: She claims that she was born and raised in [place] in the [place] area. 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 denies any legal hx. has 7 kids, is seperated. lives alone in an apartment. Mental status examination: General Appearance: Patient appears to be stated age is alert, pleasant, and cooperative. Patient appears to have [fair] hygiene and grooming wearing hospital gown with [fair] eye contact. Behavior: [Patient is calmly lying in bed without any agitated behavior.] Speech: Patient's speech is fluent and nonpressured. Mood/Affect: Patient reports their mood is "[ok mood]", affect is congruent Suicidality/Homicidality: Patient denies having any suicidal or homicidal ideation intent or plan. Perceptions: Patient denies any visual hallucinations [and denies any auditory hallucinations] Though content/process: There is no evidence of any delusional thought content and thought process is linear and goal-directed. focused on her sx Memory and concentration: AOX3, grossly intact for the purposes of this session. Can spell "WORLD" backwards Judgment and insight: fair Assessment: Depressive disorder NOS PTSD insomnia Restless leg symptoms Plan: Patient at this time does NOT meet criteria for inpatient psychiatric hos pitalization resumed cymbalta home dose of 90 mg daily for mood/anxiety, d/c seroquel due to RLS and replaced with doxepin 10 mg qhs for mood/anxiety/sleep, scheduled buspar 15 mg bid for anxiety. trazodone 100 mg qhs prn for insomnia. SW to give patient outpatient psych f/u resources for continued care as an outpatient. At this time psychiatry will continue to follow along tomorrow, please contact with any questions, thank you 05/19/23 13:25
[2023-05-19] MEDS ORDERED: traZODone HCL 100 MG TAB PO PRN (13:30)
[2023-05-19] MEDS: busPIRone HCl 10 MG TAB PO SCH ×2 (14:07→20:02)
[2023-05-19 18:08] LABS: Appearance,Urine Clear (Clear); Bilirubin,Urine Negative (Negative); Blood,Urine Negative (Negative); Glucose,Urine (UA) Negative (Negative); Ketones,Urine Negative (Negative); Leukocyte Esterase,Urine Negative (Negative); Nitrite,Urine Negative (Negative); Protein,Urine Negative (Negative); Specific Gravity,Urine 1.027 (1.001-1.035); Urobilinogen,Urine <2.0 mg/dL (<2.0)
--- NOTE | 2023-05-19 18:11 | EEG ---
ELECTROENCEPHALOGRAM REPORT CLINICAL HISTORY: This is a 48-year-old woman with body tremors. The video EEG is obtained to evaluate for seizure and epileptiform activity. RELEVANT MEDICATIONS: The patient is not on any antiepileptic drugs. EEG TYPE: A routine 21-channel with video using the 10/20 electrode placement system was used. DESCRIPTION: Wakefulness and drowsiness are obtained. During awake state, the posterior- dominant rhythm consists of low voltage of 9.5 to 10.5 Hz activity. There is no physiological stage II sleep architecture. There is no focal slowing. INTERICTAL AND ICTAL: During the study, the patient had episodes of body jerks in her legs. During the EEG, it shows delta-theta activities that were brief, and the episodes are nonepileptic in nature. There is no epileptiform discharge or seizure noted. ACTIVATION PROCEDURE: Photic stimulation did not evoke a posterior driving response. There is no abnormality during the photic stimulation. Hyperventilation is not performed. CLINICAL INTERPRETATION: This is a normal routine EEG. The background is normal. There is no focal slowing, epileptiform discharge, or seizure on the EEG. The patient's episode of leg jerks are non-epileptic in nature. Clinical correlation is recommended. MMODL / IJN: [id number] / DENNIS
[2023-05-19 18:23] LABS: Amphetamine Screen,Urine Not Detected (NotDetected); Barbiturate Screen,Urine Not Detected (NotDetected); Benzodiazepines Screen,Urine Detected (NotDetected); Cocaine Screen,Urine Not Detected (NotDetected); Methadone Screen, Urine Not Detected (NotDetected); Opiate Screen,Urine Not Detected (NotDetected); Oxycodone Screen, Urine Not Detected (NotDetected); Phencyclidine Screen,Urine Not Detected (NotDetected); Tricyclic Antidepressant,Urine Detected (NotDetected); Urn Cannabinoid Scrn Not Detected (NotDetected)
[2023-05-19 18:54] LABS: Color,Urine Yellow
[2023-05-19] MEDS ORDERED: LORazepam 2 MG/ML INJ IM PRN (19:39)
[2023-05-19] MEDS: PRAMIPEXOLE 1 MG TAB PO SCH (20:02)
[2023-05-19] MEDS: PRAMIPEXOLE 0.25 MG TAB PO SCH (20:42)
[2023-05-19] MEDS ORDERED: DOXEPIN 10 MG CAP PO SCH (21:00)
[2023-05-19] MEDS ORDERED: QUEtiapine 50 MG TAB PO SCH (21:00)
[2023-05-20] MEDS: FAMOTIDINE 20 MG TAB PO SCH ×2 (08:35→21:08)
[2023-05-20] MEDS: DULoxetine HCL 30 MG CAPSULE.DR PO SCH (08:35)
[2023-05-20] MEDS: HEPARIN SODIUM,PORCINE 5,000 UNIT/ML 1 ML VIAL SQ SCH ×2 (08:35→21:09)
[2023-05-20] MEDS: PROPRANOLOL LA 60 MG CAP.SA.24H PO SCH (08:35)
[2023-05-20] MEDS: busPIRone HCl 10 MG TAB PO SCH ×2 (08:35→21:08)
[2023-05-20] MEDS: LORazepam 2 MG/ML INJ IV PRN ×2 (10:44→21:09)
[2023-05-20 11:08] LABS: Basophils # (A) 0.05 X 10*3/uL (0.00-0.10); Basophils % (A) 0.7 %; Eosinophils # (A) 0.23 X 10*3/uL (0.04-0.35); HCT 40.2 % (37.2-46.3); HGB 13.9 d/dL (12.0-15.0); Lymphocytes # (A) 2.28 X 10*3/uL (0.90-5.00); Lymphocytes % (A) 29.6 %; MCH 29.7 pg (27.0-32.0); MCHC 34.6 d/dL (32.0-37.0); MCV 85.9 FL (80.0-97.0); Mean Platelet Volume 9.9 FL (9.5-12.2); Monocytes % (A) 7.8 %; NRBC Per 100 WBC 0 X 10*3/uL (0.00-0.01); Neutrophils # (A) 4.51 X 10*3/uL (1.80-7.70); Neutrophils % (A) 58.6 %; Platelet Count 277 X 10*3/uL (140-440); RBC 4.68 X 10*6/uL (4.10-5.20); WBC 7.69 X 10*3/uL (4.50-10.00)
[2023-05-20 13:39] LABS: ALT 36 U/L (8-44); AST 27 U/L (13-35); Albumin 4.2 d/dL (3.8-4.9); Albumin/Globulin Ratio 1.62 Ratio (1.60-3.17); Alkaline Phosphatase 74 U/L (41-126); Bilirubin, Conjugated <0.20 mg/dL (0.20-0.40); Bilirubin,Unconjugated >0.10 mg/dL (0.20-1.00); Globulin 2.6 d/dL (1.6-3.3); Total Bilirubin 0.3 mg/dL (0.3-1.2); Total Protein 6.8 d/dL (6.2-8.2)
--- NOTE | 2023-05-20 13:40 | P.PN ---
Progress Note - Text Progress Note Date: 05/20/23 Interval History: Patient was seen today for psychiatric evaluation regarding patient's depression PTSD and restless leg symptoms. Patient was laying in bed, states that she slept a bit better last night, states that she slept about 3 hours. Claimed that the doxepin did help. States that the Seroquel was causing most of the restless leg symptoms and was thankful for having a discontinued. We spoke about avoiding trazodone as well as that may also cause it. She claims that the doxepin did help her more with sleep. She claims that her mood and anxiety are fair at this time, he spoke about additional testing and outpatient neurology follow-up with me serve more benefit for her, she verbally understood and agreed. At this time patient denies any suicidal or homical ideations, intent or plan. Patient denies any auditory, visual hallucinations and denies any paranoia or delusions. Patient denies any side effects from the medications and has been compliant with meds. Mental Status Exam: General Appearance: Patient appears to be stated age is alert, pleasant, and cooperative. Patient appears to have fair hygiene and grooming wearing hospital gown with fair eye contact. Behavior: Patient is calmly lying in bed without any agitated behavior. Speech: Patient's speech is fluent and nonpressured. Mood/Affect: Patient reports their mood is "ok", affect is congruent and improved Suicidality/Homicidality: Patient denies having any suicidal or homicidal ideation intent or plan. Perceptions: Patient denies any visual hallucinations and denies any auditory hallucinations Though content/process: There is no evidence of any delusional thought content and thought process is linear and goal-directed. focused on her sx Memory and concentration: AOX3, grossly intact for the purposes of this session. Judgment and insight: fair Assessment: Depressive disorder NOS PTSD insomnia Restless leg symptoms Plan: Patient at this time does NOT meet criteria for inpatient psychiatric hospitalization cymbalta home dose of 90 mg daily for mood/anxiety, increase doxepin 20 mg qhs for mood/anxiety/sleep, scheduled buspar 15 mg bid for anxiety. d/c trazodone due to risk or RLS. SW to give patient outpatient psych f/u resources for continued care as an outpatient. suggested that patient look into further neurology outpatient follow up for further options for treatment of RLS. At this time psychiatry will sign off, please contact with any questions, thank you
--- NOTE | 2023-05-20 18:12 | P.PN ---
Subjective Progress Note Date: 05/20/23 I am following seeing the patient and she is feeling drastically better. No further uncontrollable tremors. Denies of any new neurological issues. Objective - Vital Signs Vital signs: Vital Signs Temp 98.2 F 05/20/23 15:00 Pulse 66 05/20/23 15:00 Resp 16 05/20/23 15:00 BP 105/64 05/20/23 15:00 Pulse Ox 98 05/20/23 15:00 FiO2 Intake & Output 05/19/23 05/20/23 05/20/23 18:59 06:59 18:59 Intake Total 188 120 Output Total 250 Balance -62 120 Intake: Oral 188 120 Output: Urine 250 Other: Voiding Method Toilet # Voids 2 3 - Exam GENERAL: The patient is lying in bed and is not in acute distress. NEUROLOGICAL: Higher mental function: The patient is awake, alert, oriented to self, place and time. Patient is following commands. No aphasia and no neglect. Cranial nerves: The pupils are round, equal and reactive to light and accommodation. Visual zapata are full to confrontation throughout. Extraocular movement is intact no nystagmus is noted. Facial sensation is normal to touch throughout. The facial strength is normal throughout. Hearing is normal bilaterally to hand rub. Tongue is midline and moved [id number] without any difficulty. No dysarthria is noted. Shoulder shrug is normal bilaterally. Motor: The strength is 5 over 5 throughout. Normal tone and bulk. No tremors. Cerebellum: Normal finger to nose heel to wood bilaterally. Sensation: Sensation is normal to touch throughout. Reflexes (right/left): 2+ throughout. Plantars are downgoing bilaterally. Some other workup during this hospitalization consisted of: White blood cell 12.6 and the neutrophils is 8.4 otherwise CBC with differential is unremarkable next Serum glucose is 104, AST 64 and ALTs 46. Otherwise rest of Kristy's panels unremarkable. TSH is 3.940. Urine drug screen is positive for benzos as well as tricyclic antidepressant. CT of the head is reported as no acute intracranial process. Routine EEG is normal. The background is normal. There is no focal slowing or epileptiform discharge seizure on the EEG. The patient episode of leg jerks is captured during the study and there are nonepileptic in nature. - Labs CBC & Chem 7: 05/20/23 06:18 05/19/23 02:45 Labs: Abnormal Lab Results - Last 24 Hours (Table) 05/19/23 05/20/23 Range/Units 17: 06:18 Unconjugated Bilirubin >0.10 L (0.20-1.00) mg/dL U Tricyclic Antidepress Detected H (NotDetected) U Benzodiazepines Scrn Detected H (NotDetected) Assessment and Plan Assessment: This is a 48-year-old woman with history of depression, insomnia, restless leg syndrome, fibromyalgia, PTSD has been on Seroquel 150 mg daily for the last 6 months and ever since she's been on Seroquel she felt that she's been having uncontrollable movement. She had an episode when that she stop Seroquel about a month ago she became unresponsive and had urinary incontinence so she was restarted on it a month ago. She ran out of Klonopin about a month ago. She is also on Klonopin, Cymbalta. Dyskinesia (reported) likely due to medication use and medication withdrawal (antipsychotic use and withdrawal of Klonipin). EEG is normal. History of PTSD History of fibromyalgia History of insomnia Tobacco use Plan: Routine EEG is normal. The background is normal. There is no focal slowing or epileptiform discharge seizure on the EEG. The patient episode of leg jerks is captured during the study and there are nonepileptic in nature. Psychiatry team is consulted Patient was counseled on tobacco cessation We'll defer the rest of the medical management to primary team The plan discussed with the patient and her nurse. There is no further neurological work-up. Will sign off. Please consult if needed. Time with Patient: Less than 30
[2023-05-20] MEDS ORDERED: DOXEPIN 10 MG CAP PO SCH (21:00)
[2023-05-20] MEDS: PRAMIPEXOLE 1 MG TAB PO SCH (21:08)
[2023-05-20] MEDS: PRAMIPEXOLE 0.25 MG TAB PO SCH (21:09)
[2023-05-20] MEDS ORDERED: LORazepam 2 MG/ML INJ IV PRN ×2 (22:24)
[2023-05-21 07:28] VITALS: BP 119/78; PULSE 70; RESP 15; TEMP 98.2
[2023-05-21] MEDS: PROPRANOLOL LA 60 MG CAP.SA.24H PO SCH (08:42)
[2023-05-21] MEDS: HEPARIN SODIUM,PORCINE 5,000 UNIT/ML 1 ML VIAL SQ SCH (08:42)
[2023-05-21] MEDS: busPIRone HCl 10 MG TAB PO SCH (08:42)
[2023-05-21] MEDS: FAMOTIDINE 20 MG TAB PO SCH (08:43)
[2023-05-21] MEDS: DULoxetine HCL 30 MG CAPSULE.DR PO SCH (08:43)
--- NOTE | 2023-05-21 11:50 | P.DS ---
Providers Date of admission: 05/19/23 03:57 Expected date of discharge: 05/21/23 Attending physician: Gerhard Miller MD Consults: 05/19/23 03:23 Consult Physician Routine Consulting Provider: Lc Randolph Consult Reason/Comments: Uncontrollable tremors Do you want consulting provider notified?: Yes, Notify in am 05/19/23 06:28 Consult Physician Routine Consulting Provider: Vlad Griffiths Consult Reason/Comments: depression and others, known to you Do you want consulting provider notified?: Yes Primary care physician: Stated None Hospital Course: 48 years old female with past medical history of hypertension, hyperlipidemia, fibromyalgia, anxiety and depression. Presents because of worsening restless leg and other symptoms as below. 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 She is originally from [place], she is but she still talks to her ex- who is in [place] currently. She is to go to neuropsychiatrist at [facility] for insomnia and severe restless leg syndrome as she states when they diagnosed her. She was placed on Seroquel, Dulcolax and Mirapex. About 4 weeks ago she thought that Seroquel making her restless leg syndrome worse so she stopped taking cold turkey and ended up being here in the hospital this facility. On reviewing the records , Patient was admitted 04/17-04/19 for medication withdrawal as she ran out of it, patient does not have PCP here in [place]. Psychiatric service evaluated her and diagnosed with depressive disorder who may history of PTSD and S SR I medication withdrawal. There is into her Cymbalta 90 mg daily, increase Seroquel to 150 leg at bedtime and BuSpar 50 mg 3 times a day when necessary for anxiety with recommendatio, she's been anxious n for outpatient follow-up. However patient still reports an restless leg and other feelings. Patient states she continue to take her medication currently. But she came to the hospital because since last Tuesday she could not sleep, she's been anxious, she reports some numbness and tingling in her fingers and feet, she thinks she lost her vision a certain point and she is not sure if she lost consciousness and bit her tongue but currently she denies any of these symptoms like loss of vision or confusion. She also reports some diarrhea and nausea but no abdominal pain, she has 6 bowel movements yesterday. No urinary complaints. She feels some tightness in the chest, chest pain and palpitation but these are multiple main symptoms and she does not complain from them currently. No headache dizziness weakness, no currently double vision or blurred vision. She feels there are skips in her brain (she states she cannot explain exactly how she feels) She denies smoking alcohol or illicit drugs Patient says she takes propranolol 90 mg at bedtime Patient states that she was on Ceftin for UTI symptoms but, patient denies any signs and symptoms of similar therefore we will hold on any antibiotics for now Patient is hemodynamically stable, afebrile Has mild leukocytosis of 12.6, risks of CBC, BMP is unremarkable Bilirubin is normal but liver enzymes slightly up with AST 54 and ALT 46. Patient received Ativan in the emergency room and she felt significantly better, she states that her tremor is significantly improved and also she is sleeping here in the emergency room 12, but she is easily to awake > Patient was seen by psychiatry and neurology and cleared for discharge. Home medications were adjusted. Patient denies of any tremors or muscle spasms. Requested to follow up outpatient with PCP PHYSICAL EXAMINATION: GENERAL: The patient is alert and oriented x3, not in any acute distress. Well developed, well nourished. HEENT: Pupils are round and equally reacting to light. EOMI. No scleral icterus. No conjunctival pallor. Normocephalic, atraumatic. No pharyngeal erythema. No thyromegaly. CARDIOVASCULAR: S1 and S2 present. No murmurs, rubs, or gallops. PULMONARY: Chest is clear to auscultation, no wheezing or crackles. ABDOMEN: Soft, nontender, nondistended, normoactive bowel sounds. No palpable organomegaly. MUSCULOSKELETAL: No joint swelling or deformity. EXTREMITIES: No cyanosis, clubbing, or pedal edema. NEUROLOGICAL: Gross neurological examination did not reveal any focal deficits. SKIN: No rashes. Assessment and plan psychiatric symptoms suspicious for depression and anxiety,with restless leg, With suspected some elements of PTSD as well. Restless leg and possible tremor Insomnia Hypertension Hyperlipidemia Fibromyalgia anxiety and depression Resume her psych medications including BuSpar, Seroquel and Cymbalta Seen by neurology and psychiatry cleared for discharge Patient Condition at Discharge: Fair Plan - Discharge Summary New Discharge Prescriptions: New Doxepin [SINEquan] 20 mg PO HS 30 Days #30 cap busPIRone HCl [Buspar] 20 mg PO BID 30 Days #60 tab Continue Atorvastatin [Lipitor] 10 mg PO DAILY Propranolol LA [Inderal LA] 120 mg PO DAILY DULoxetine HCL [Cymbalta] 90 mg PO DAILY #60 cap QUEtiapine [SEROquel] 150 mg PO HS #30 tab Pramipexole Di-HCl [Mirapex] 2.25 mg PO HS #30 tab Discontinued busPIRone HCl [Buspar] 15 mg PO TID PRN #30 tab PRN Reason: Anxiety Discharge Medication List Atorvastatin [Lipitor] 10 mg PO DAILY 04/17/23 [History] Propranolol LA [Inderal LA] 120 mg PO DAILY 04/17/23 [History] DULoxetine HCL [Cymbalta] 90 mg PO DAILY #60 cap 04/19/23 [Rx] Pramipexole Di-HCl [Mirapex] 2.25 mg PO HS #30 tab 04/19/23 [Rx] QUEtiapine [SEROquel] 150 mg PO HS #30 tab 04/19/23 [Rx] Doxepin [SINEquan] 20 mg PO HS 30 Days #30 cap 05/21/23 [Rx] busPIRone HCl [Buspar] 20 mg PO BID 30 Days #60 tab 05/21/23 [Rx] Follow up Appointment(s)/Referral(s): None,Stated [Primary Care Provider] - 1-[address] [facility] [NON-STAFF] - 1 Week Discharge/Stand Alone Forms: Community Resources, Outpatient Counseling, Personal Personnel Officer Discharge Disposition: HOME SELF-CARE
== END 2023-05-21 12:30 | disposition home or self-care (01) | DRG 897 ==
LOC: EC 01:30 → 6NMEDSUR 03:57 → OBSVTOIN 03:57 → 6NMEDSUR 05:35
PROVIDERS: ADMIT Internal Medicine; ATTEND Internal Medicine
DX: F19.939 Other psychoactive substance use, unspecified with withdrawal, unspecified (principal); F43.10 Post-traumatic stress disorder, unspecified; F32.A Depression, unspecified; E78.5 Hyperlipidemia, unspecified; F17.290 Nicotine dependence, other tobacco product, uncomplicated; G25.81 Restless legs syndrome; G47.00 Insomnia, unspecified; I10 Essential (primary) hypertension; M79.7 Fibromyalgia; Z87.440 Personal history of urinary (tract) infections; Z87.898 Personal history of other specified conditions; Z79.899 Other long term (current) drug therapy; Z60.2 Problems related to living alone; Z88.0 Allergy status to penicillin; Z88.8 Allergy status to other drugs, medicaments and biological substances; Z63.5 Disruption of family by separation and divorce
CPT/HCPCS: 36415; 70450; 80053; 80076; 80306; 81003; 82550; 84443; 85025; 94760; 95819; 96361; 96374; 99285